=== PATIENT | male | born 1995 | race Caucasian/White ===

== ENCOUNTER 2019-11-21 17:09 | Outpatient (CLI) | payer OTHER, SELFPAY ==
[2019-11-21 17:20] LABS: Viscosity Semen Droplets
[2019-11-21 17:25] LABS: PH Semen 8.5 (7.0-8.0)
[2019-11-21 17:48] LABS: Sperm Immotility 20 % (50-60); Sperm Progressive Motility 80 % (31-34)
[2019-11-21 19:40] LABS: Epithelial Count Semen 0-4 /hpf; Pathology Referral Yes; Red Blood Count Semen 1 /hpf
[2019-11-21 19:41] LABS: Side 1 50; Side 2 49
== END 2019-11-21 17:10 | disposition home or self-care (01) ==
LOC: LAB 17:11
PROVIDERS: Family Provider Family Medicine; Visit Provider Obstetrics & Gynecology
DX: N46.9 Male infertility, unspecified (principal)
CPT/HCPCS: 80500; 89320

== ENCOUNTER → 2020-10-21 10:51 | Outpatient (BNVA) | payer OTHER, SELFPAY | PROVIDERS: Family Provider Family Medicine; PCP Obstetrics & Gynecology; Visit Provider Registered Nurse Neonatal Intensive Care | DX: S69.92XA Unspecified injury of left wrist, hand and finger(s), initial encounter (principal); X58.XXXA Exposure to other specified factors, initial encounter | CPT/HCPCS: 73130 ==